=== PATIENT | female | born 1965 | race Caucasian/White ===

== ENCOUNTER → 2017-02-13 21:39 | Outpatient (CLI) | payer MEDICARE ==
[2011-03-10 23:28] VITALS: BMI 27.2
== END | disposition home or self-care (01) ==
LOC: D.MAMMO 14:30
DX: Z12.31 Encounter for screening mammogram for malignant neoplasm of breast (principal)

== ENCOUNTER → 2017-08-10 12:53 | Outpatient (CLI) | payer MEDICARE ==
[2011-03-10 23:28] VITALS: BMI 27.2
== END | disposition home or self-care (01) ==
LOC: D.MRI 12:53
DX: S32.000A Wedge compression fracture of unspecified lumbar vertebra, initial encounter for closed fracture (principal); X58.XXXA Exposure to other specified factors, initial encounter

== ENCOUNTER 2018-11-01 11:28 | Observation (INO) | payer MEDICARE, MEDICAID ==
[2018-11-01] VITALS (7 sets, daily range): BP systolic 110–121; BP diastolic 63–77; BMI 25.6
[~2018-11-01] VITALS: Ht 157.5 cm; Wt 63.5 kg
[2018-11-01] MEDS ORDERED: ZESTRIL10 MG PO (13:45)
[2018-11-01] MEDS ORDERED: TRICOR145 MG PO (13:46)
[2018-11-01] MEDS ORDERED: VESICARE5 MG PO (13:46)
[2018-11-01] MEDS ORDERED: OMEPRAZOLE40 MG PO (13:46)
[2018-11-01] MEDS ORDERED: NEURONTIN 300300 MG PO (13:47)
[2018-11-01] MEDS ORDERED: MULTI-DAY VITAM1 TAB PO (13:48)
[2018-11-01] MEDS ORDERED: NIFEREX-150 CAP1 CA3 PO (13:48)
[2018-11-01] MEDS ORDERED: FIBER-TABS625 MG PO (13:48)
[2018-11-01] MEDS ORDERED: CITRACAL + D E1 EACH PO (13:49)
[2018-11-01] MEDS ORDERED: ASCORBIC ACID500 MG PO (13:50)
[2018-11-01] MEDS ORDERED: VITAMIN B-121000 MCG PO (13:50)
[2018-11-01] MEDS ORDERED: FOLIC ACID0.8 MG PO (13:50)
[2018-11-01] MEDS ORDERED: FLORANEX / LACT1 TAB PO (13:51)
[2018-11-02] VITALS: BP 98/53
[2018-11-02 04:00] VITALS: BP 107/69
[2018-11-02 07:17] VITALS: BP 96/47
--- NOTE | 2018-11-02 07:46 | NUR ---
PT LAYING DOWN. RR EVEN AND UNLABORED. NO DISTRESS NOTED. ASSESSMENT COMPLETE. DRESSING NOTED TO PERINEAL AREA, CDI. BP SLIGHTLY LOW, PT STATES THAT IS NORMAL FOR HER. PT DENIES NEEDS AT THIS TIME. WILL CONTINUE TO MONITOR.
--- NOTE | 2018-11-02 10:57 | MORECARE ---
CASE MANAGEMENT DISCHARGE SUMMARY PATIENT: MYLA CARRERA UNIT: [id number] ADM DATE: 11/01/18 AGE: 53 : 61 SEX: F ROOM/BED: D.1203 AUTHOR: MACHO WATT PHYSICIAN: REFERRING PHYSICIAN: ANDREW WRIGHT MD DATE OF SERVICE: 11/02/18 Discharge Plan Patient Name: MYLA CARRERA Facility: [facility]:[place] : 1965 Planned Disposition: Jail Facility Anticipated Discharge Date: Discharge Date: Expected LOS: Initial Reviewer: [email or web address] Initial Review Date: 11/02/2018 Generated: 11/02/18 11:56 am Patient Name: MYLA CARRERA Page [phone] at 1057 All edits/amendments must be made on the electronic document DICTATION DATE: 11/02/18 1056 SALES SUPPORT COORDINATOR: JUANI 11/02/18 1056 RPT#: [id number] DC DATE: STATUS: ADM IN [facility] [address] [place] [address] END OF REPORT
--- NOTE | 2018-11-02 11:10 | MORECARE ---
CASE MANAGEMENT DISCHARGE SUMMARY PATIENT: MYLA CARRERA UNIT: [id number] ADM DATE: 11/01/18 AGE: 53 : 61 SEX: F ROOM/BED: D.1203 AUTHOR: MACHO WATT PHYSICIAN: REFERRING PHYSICIAN: ANDREW WRIGHT MD DATE OF SERVICE: 11/02/18 Discharge Plan Patient Name: MYLA CARRERA [facility] : 1965 Planned Disposition: Intermediate Facility Anticipated Discharge Date: Discharge Date: Expected LOS: Initial Reviewer: [email or web address] Initial Review Date: 11/02/2018 Generated: 11/02/18 12:10 pm DCPIA - Discharge Planning Initial Assessment Updated by [email or web address]: Bina Avina on 11/02/18 11:07 am * Is the patient Alert and Oriented? Yes * How many steps to enter\exit or inside your home? RAMP * PCP DR ROMERO * Pharmacy [facility] * Preadmission Environment Home with Family * ADLs Partial Dependent * Partial ADLs (Assistance needed) Bathing Transfers * Equipment Cane Walker Wheelchair * Other Equipment ROLLATOR * List name and contact numbers for known caregivers / representatives who currently or will assist patient after discharge: TRUDY CONNOR [facility]- [phone] * Verbal permission to speak to the caregivers and representatives has been obtained from the patient. Yes * Community resources currently utilized None * Please name any agencies selected above. N/A * Additional services required to return to the preadmission environment? Yes * Can the patient safely return to the preadmission environment? Yes * Has this patient been hospitalized within the prior 30 days at any hospital? No Last DP export: 11/02/18 9:57 a Patient Name: MYLA CARRERA Page 68951 at 1110 All edits/amendments must be made on the electronic document DICTATION DATE: 11/02/18 1110 CAPTAIN ASSISTANT: JUANI 11/02/18 1110 RPT#: [id number] DC DATE: STATUS: ADM IN [facility] [address] [id number] END OF REPORT
--- NOTE | 2018-11-02 11:24 | MORECARE ---
CASE MANAGEMENT DISCHARGE SUMMARY PATIENT: MYLA CARRERA UNIT: [id number] ADM DATE: 11/01/18 AGE: 53 : 61 SEX: F ROOM/BED: D.1203 AUTHOR: MACHO WATT PHYSICIAN: REFERRING PHYSICIAN: JM WRIGHT MD DATE OF SERVICE: 11/02/18 Discharge Plan Patient Name: MYLA CARRERA Facility: [facility]:[place] : 1965 Planned Disposition: [facility]fp Facility Anticipated Discharge Date: Discharge Date: Expected LOS: Initial Reviewer: [email or web address] Initial Review Date: 11/02/2018 Generated: 11/02/18 12:23 pm Comments DCP- Discharge Planning Updated by [email or web address]: Bina Avina on 11/02/18 10:[address] Patient Name: MYLA CARRERA Admission Status: Urgent Accout number: [id number] Admission Date: 11-01-2018 : 1965 Admission Diagnosis:ABSCESS OF VULVA Attending: Jm Wright Current LOS: 1 Anticipated DC Date: Planned Disposition: [facility] Facility Primary Insurance: [facility] MEDICARE SOLUTIONS Discharge Planning Comments: LATE ENTRY 0900 CM MET WITH THE PATIENT AND HER SISTER AT THE BEDSIDE. THE PRIMARY NURSE HAD ADVISED THE CM THAT THE SISTER WAS ANXIOUS AND CONCERNED ABOUT DISCHARGE NEEDS. THE SISTER IS WORRIED AND VOICING CONCERNS REGARDING WOUND CARE AND ACKERMAN CARE AT DISCHARGE. THE SISTER WORKS SEISMIC INTERPRETER UNTIL 1600 INTHE EARLY EVENING. HE PATIENT HAS SPINA BIFIDA AND WILL NEED ASISTANCE W/ SITZ BATH, WOUND CARE AND ACKERMAN CARE. THE NURSE CALLED DR TIWARI. ORDER OBTAINED FOR PRIMARY CARE CONSULT. DISCHARGE CANCELLED. PATIENT AND SISTER CONSIDERING SKILLED CARE SHORT STAY. DISCUSS HOME HEALTH AND SKILLED CARE OPTIONS. EXPLAINED THAT THE PATIENT WILL NEED TO CONSIDER MANAGED MEDICARE IN-NETWORK PROVIDERS FOR BETTER INSURANCE COVERAGE. PROVIDED LIST OF SKILLED FACILITIES 1050- DR CABA VISITED FOR CONSULT. Ground Wirer: Bina Avina DCPIA - Discharge Planning Initial Assessment Updated by [email or web address]: Bina Avina on 11/02/18 11:07 am * Is the patient Alert and Oriented? Yes * How many steps to enter\exit or inside your home? RAMP * PCP DR ROMERO * Pharmacy [facility] * Preadmission Environment Home with Family * ADLs Partial Dependent * Partial ADLs (Assistance needed) Bathing Transfers * Equipment Cane Walker Wheelchair * Other Equipment ROLLATOR * List name and contact numbers for known caregivers / representatives who currently or will assist patient after discharge: TRUDY CONNOR - - [phone] * Verbal permission to speak to the caregivers and representatives has been obtained from the patient. Yes * Community resources currently utilized None * Please name any agencies selected above. N/A * Additional services required to return to the preadmission environment? Yes * Can the patient safely return to the preadmission environment? Yes * Has this patient been hospitalized within the prior 30 days at any hospital? No Last DP export: 11/02/18 10:10 a Patient Name: MYLA CARRERA Page [phone] at 1124 All edits/amendments must be made on the electronic document DICTATION DATE: 11/02/18 112 MORTGAGE LOAN OFFICER ORIGINATOR: JUANI 11/02/18 1123 RPT#: [id number] DC DATE: STATUS: ADM IN [facility] [address] [place] [address] END OF REPORT
[2018-11-02 17:23] VITALS: BP 127/50
--- NOTE | 2018-11-02 17:41 | NUR ---
DRESSING REMOVED. NEOSPORIN PLACED ON INCISION SITE AND NON ADHESIVE PAD APPLIED PER DR. WRIGHT REQUEST.
--- NOTE | 2018-11-02 19:25 | NUR ---
PATIENT RESTING IN BED WITH GUEST AT BS AND NO S/S OF DISTRESS. VSS. PATIENT DENIES NEEDS AT THIS TIME. BED IN LOWEST POSITION AND CALL LIGHT WITHIN REACH. ENCOURAGED THE PATIENT TO CALL IF SHE HAS NEEDS. WILL CONTINUE TO MONITOR.
[2018-11-02 19:40] VITALS: BP 121/78
[2018-11-02 20:59] LABS: APPEARANCE CLEAR (CLEAR); BILIRUBIN NEGATIVE (NEGATIVE); COLOR YELLOW (YELLOW); GLUCOSE NEGATIVE (NEGATIVE); KETONE NEGATIVE (NEGATIVE); NITRITE NEGATIVE (NEGATIVE); PROTEIN 3+ mg/dL (NEGATIVE); RED CELLS - URINE 0-5 /hpf (0-5); SPECIFIC GRAVITY 1.025 (1.005-1.020); UROBILINOGEN NORMAL (NORMAL); WHITE CELLS - URINE NSEEN /hpf (0-5)
[2018-11-02 21:00] LABS: EPITHELIAL CELLS 0-5 /hpf (0-5)
[2018-11-03 00:42] VITALS: BP 124/80
[2018-11-03 04:00] VITALS: BP 147/90
[2018-11-03 07:24] VITALS: BP 111/39
--- NOTE | 2018-11-03 07:25 | NUR ---
PT SITTING UP IN BED. RR EVEN AND UNLABORED. VSS. DENIES NEEDS OR PAIN AT THIS TIME. WILL CONTINUE TO MONITOR.
--- NOTE | 2018-11-03 08:21 | CN ---
PATIENT NAME:MYLA CARRERA MEDICAL RECORD: [id number] : 61 [facility] ADMIT DATE: 11/01/18 ACCOUNT: [id number] CONSULTING PHYSICIAN: MALACHI CABA MD REFERRING PHYSICIAN: ANDREW WRIGHT MD DATE OF CONSULTATION: 11/02/2018 MEDICAL CONSULT ADMITTING PHYSICIAN: Andrew Wright MD, BALLET MASTER/MISTRESS REASON FOR CONSULTATION: Medical management postoperative. HISTORY OF PRESENT ILLNESS: The patient is a 53-year-old female with history of spina bifida and surgery for that. As a result, she has had a meningomyelocele and lumbar degenerative disc disease. She is able to walk, but has chronic bladder problems with neurogenic bladder and bladder trabeculation and UTI. She was operated on yesterday by Dr. Wright for a labial mass versus abscess, diagnosis is unknown at this time. She now needs daily wound therapy and that cannot be accomplished at home. She has only one carton and can supply supervisor currently. Case management is attempting to place her in a rehab nursing facility and needed medical evaluation for that. She has felt well otherwise until this point. PAST MEDICAL HISTORY: Spina bifida with secondary fecal and urinary incontinence; lower extremity neuropathy; hypertension; hyperlipidemia; postmenopausal posthysterectomy in 2000; clubbed feet; history of pancolitis with MRSA infection in 2010, treated inpatient at [facility]. PAST SURGICAL HISTORY: Significant for spina bifida at age 1. She has had over 20 shunt placements that were in the mid teenage years, TAHBSO due to fibroid in 2000, recent labial mass removal. ALLERGIES: TYLENOL. FAMILY HISTORY: Father of kidney failure at 72, is diabetic, had hypertension and stroke. Mother from sepsis, respiratory failure, history of congestive heart failure and was diabetic. One brother had coronary artery disease at age 50 with a stent placed, also hypertension. One sister with hyperlipidemia. Another brother with hyperlipidemia. One sister hypothyroid. MEDICATIONS: Fenofibrate 145 mg a day; lisinopril 10 mg daily; omeprazole 20 mg two tablets daily; lactobacillus acidophilus 460 mg p.o. daily; Keflex 500 mg p.o. daily; gabapentin 300 mg b.i.d.; iron 130 mg a day; VESIcare 10 mg in the morning and 5 mg in the evening; multivitamin one daily; calcium carbonate 600 mg daily; vitamin C 500 mg daily; vitamin D2 2000 units daily; B12 1000 mg daily; folic acid 800 mg daily; cranberry pills once a day. REVIEW OF SYSTEMS: CONSTITUTIONAL: No fever, fatigue, or weight change. HEENT: No recent visual change, sinus congestion, or sore throat. RESPIRATORY: No severe cough. CARDIAC: No chest pain or claudication. GASTROINTESTINAL: No nausea, vomiting, change in stools or blood per rectum. GENITOURINARY: Chronic incontinence as mentioned above. CONSULT REPORT [id number] MYLA CARRERA GYNECOLOGICAL: Recent labial irritation and mass formation, moderately painful. ENDOCRINE: Denies polyuria, polydipsia, heat or cold intolerance. NEUROLOGIC: No history of stroke, TIA, or vascular headaches. She says she has neuropathy in her lower extremities. Is able to walk. Has little control of her urine and her rectum. PSYCHIATRIC: Denies depressed mood. PHYSICAL EXAMINATION: GENERAL: Alert 53-year-old female who is postop at this time, expressing no complaints of pain. VITAL SIGNS: Her weight is 149 pounds, height 62 inches and BMI is 27.2, blood pressure 120/80. EYES: Clear. MOUTH: Oropharynx unremarkable. NECK: Supple. CHEST: Clear. HEART: Regular rate without murmur. ABDOMEN: Soft and nontender. GYNECOLOGY: Deferred. She has surgical packing noted with Dugan catheter in place. EXTREMITIES: Muscle atrophy in lower extremities. Lower extremities with club feet. She does have some motor function of her lower extremities and sensation. LABORATORY DATA: Sodium 135, potassium 3.6, BUN is 19, creatinine 0.8. CBC is normal. ASSESSMENT: 1. Postoperative day 1 from the labial mass removal, excision. 2. Spina bifida with myelomeningocele. 3. Neurogenic bladder. 4. History of methicillin-resistant Staphylococcus aureus pancolitis. 5. Hypertension. 6. Hyperlipidemia. PLAN: We will follow medically. At this time, we will obtain consult case management for rehab placement for wound care. TRANSINT:[id number] Voice Confirmation ID: [id number] DOCUMENT ID: [id number] MALACHI CABA MD at 0821 CC: [id number] DICTATION DATE: 11/02/18 0088 FILM SPOOLER: 11/02/[address] [facility] [address] [place] [address]
--- NOTE | 2018-11-03 10:13 | OP ---
PATIENT NAME: MYLA CARRERA MEDICAL RECORD: [id number] :61 LOCATION:D.M3 D.1203 ADMISSION DATE:11/01/18 SURGEON: JM WRIGHT MD DATE OF OPERATION: 11/01/2018 PREOPERATIVE DIAGNOSIS: Vulvar mass. POSTOPERATIVE DIAGNOSIS: Vulvar mass. PROCEDURE: Excision of vulvar mass. SURGEON: Jm Wright MD IGNITION SPECIALIST: Bart Roa. ANESTHESIOLOGIST: Deejay English MD ANESTHESIA: General. FINDINGS: A fluctuant cystic mass contained within the right vulva/inferior mons pubis. The mass is fluid-filled with bloody fluid measuring 5 x 3-1/2 cm. Otherwise, vulvar anatomy is unremarkable. SPECIMENS REMOVED: Vulvar mass. SPECIMEN DISPOSITION: Pathology. ESTIMATED BLOOD LOSS: Less than or equal to 75 mL. FLUIDS: 1 liter of lactated Ringer's. URINE OUTPUT: 100 cc of clear urine. COMPLICATIONS: None. DRAINS: Dugan to gravity. INDICATIONS: The patient is a 53-year-old female who was seen in the Emergency Department and primary care physician with a vulvar erythema and pain. The patient was diagnosed with abscess and started on clindamycin. The patient presents to IMMIGRATION SPECIALIST clinic this morning with a large fluctuant mass on the vulva without localization and exquisite tenderness. The patient was consented for removal of vulvar mass versus drainage of deep abscess. DESCRIPTION OF PROCEDURE: After informed consent was assured, the patient was taken to the operating room where anesthetic was obtained. The patient was placed in Yellofin stirrups and prepped and draped. Dugan catheter was started. The mass was identified in its margins marked. A linear incision was now made along the lines of Langerhans, right lateral to the vagina along the surface. The skin edges are elevated with Allis clamps and using tenotomy scissors and blunt dissection, the cyst was freed from the deeper tissues. After expulsion of the cyst, it was removed from the field. The deep tissues were closed with a 2-[address]-2. The skin was reapproximated with 3-0 Vicryl on a cutting needle. Sterile dressing was applied. Ice packs applied in the PACU. Sponge, lap, needle counts were correct times 2. OPERATIVE REPORT [id number] MYLA CARRERA TRANSINT:[id number] Voice Confirmation ID: [id number] DOCUMENT ID: [id number] JM WRIGHT MD at 1013 CC: [id number] DICTATION DATE: 11/01/181735 NETWORK TECHNICIAN: 11/01/18 2300 ADM IN [facility] [address] [place] [address]
--- NOTE | 2018-11-03 14:42 | NUR ---
I have reviewed this patient and I concur with the Shift Assessment completed by the Licensed Practical Nurse today this shift.
--- NOTE | 2018-11-03 14:50 | NUR ---
BED BATH GIVEN. LINENS CHANGED. PT REFUSED TO WASH HAIR. ORAL CARE COMPLETE.
[2018-11-03 18:08] VITALS: BP 146/67
--- NOTE | 2018-11-03 18:43 | NUR ---
PT ASSISTED TO THE BATHROOM X1 ASSIST. GAIT SLIGHTLY UNSTEADY.
--- NOTE | 2018-11-03 19:29 | NUR ---
PATIENT RESTING IN BED AND DENIES NEEDS AT THIS TIME. VSS. BED IN LOWEST POSITION AND CALL LIGHT WITHIN REACH. ENCOURAGED THE PATIENT TO CALL IF SHE HAS NEEDS. WILL CONTINUE TO MONITOR.
[2018-11-03 19:56] VITALS: BP 168/66
--- NOTE | 2018-11-03 19:58 | NUR ---
PATIENT REQUESTED DR BE CALLED FOR SOMETHING TO HELP HER SLEEP
--- NOTE | 2018-11-03 20:00 | NUR ---
SPOKE WITH DR. WRIGHT IN REGARDS TO PATIENT'S REQUEST. DR. WRIGHT ORDERED 10 MG AMBIEN A ONE TIME ORDER
[2018-11-04] VITALS: BP 100/54
[2018-11-04 04:00] VITALS: BP 106/44
--- NOTE | 2018-11-04 07:25 | NUR ---
AM ROUNDS- PT IN BED EATING BREAKFAST, A/O X4, RESP EVEN AND NONLABORED ON RA. LT WRIST IV SL. ACKERMAN DRAINING YELLOW URINE TO GRAVITY. INFORMED PT THAT SHE IS BEING DISCHARGED TODAY. PT DENIES ANY NEEDS AT THIS TIME. CALL LIGHT IN REACH, NAD NOTED, WILL CONTINUE PLAN OF CARE.
--- NOTE | 2018-11-04 08:26 | NUR ---
AM MEDS GIVEN AT THIS TIME. PT IN BED, DENIES ANY NEEDS AT THIS TIME. CALL LIGHT IN REACH, NAD NOTED, WILL CONTINUE TO MONITOR.
[2018-11-04 09:33] VITALS: BP 118/71
--- NOTE | 2018-11-04 11:03 | MORECARE ---
CASE MANAGEMENT DISCHARGE SUMMARY PATIENT: MYLA CARRERA UNIT: [id number] ADM DATE: 11/01/18 AGE: 53 : 61 SEX: F ROOM/BED: D.1203 AUTHOR: MACHO WATT PHYSICIAN: REFERRING PHYSICIAN: JM WRIGHT MD DATE OF SERVICE: 11/04/18 Discharge Plan Patient Name: MYLA CARRERA Facility: [facility]:[place] : 1965 Planned Disposition: Prison Facility Anticipated Discharge Date: Discharge Date: Expected LOS: Initial Reviewer: [email or web address] Initial Review Date: 11/02/2018 Generated: 11/04/18 12:03 pm DCP- Discharge Planning Updated by [email or web address]: Bina Avina on 11/02/18 10:[address] Patient Name: MYLA CARRERA Admission Status: Urgent Accout number: [id number] Admission Date: 11-01-2018 : 1965 Admission Diagnosis:ABSCESS OF VULVA Attending: Jm Wright Current LOS: 1 Anticipated DC Date: Planned Disposition: Prison Facility Primary Insurance: [facility] MEDICARE SOLUTIONS Discharge Planning Comments: LATE ENTRY 0900 CM MET WITH THE PATIENT AND HER SISTER AT THE BEDSIDE. THE PRIMARY NURSE HAD ADVISED THE CM THAT THE SISTER WAS ANXIOUS AND CONCERNED ABOUT DISCHARGE NEEDS. THE SISTER IS WORRIED AND VOICING CONCERNS REGARDING WOUND CARE AND ACKERMAN CARE AT DISCHARGE. THE SISTER WORKS CLAIMS MANAGER UNTIL 1600 INTHE EARLY EVENING. HE PATIENT HAS SPINA BIFIDA AND WILL NEED ASISTANCE W/ SITZ BATH, WOUND CARE AND ACKERMAN CARE. THE NURSE CALLED DR TIWARI. ORDER OBTAINED FOR PRIMARY CARE CONSULT. DISCHARGE CANCELLED. PATIENT AND SISTER CONSIDERING SKILLED CARE SHORT STAY. DISCUSS HOME HEALTH AND SKILLED CARE OPTIONS. EXPLAINED THAT THE PATIENT WILL NEED TO CONSIDER MANAGED MEDICARE IN-NETWORK PROVIDERS FOR BETTER INSURANCE COVERAGE. PROVIDED LIST OF SKILLED FACILITIES 1050- DR CABA VISITED FOR CONSULT. Child Development Consultant: Bina Avina DCPIA - Discharge Planning Initial Assessment Updated by [email or web address]: Bina Avina on 11/02/18 11:07 am * Is the patient Alert and Oriented? Yes * How many steps to enter\exit or inside your home? RAMP * PCP DR ROMERO * Pharmacy [facility] * Preadmission Environment Home with Family * ADLs Partial Dependent * Partial ADLs (Assistance needed) Bathing Transfers * Equipment Cane Walker Wheelchair * Other Equipment ROLLATOR * List name and contact numbers for known caregivers / representatives who currently or will assist patient after discharge: TRUDY CONNOR - - [phone] * Verbal permission to speak to the caregivers and representatives has been obtained from the patient. Yes * Community resources currently utilized None * Please name any agencies selected above. N/A * Additional services required to return to the preadmission environment? Yes * Can the patient safely return to the preadmission environment? Yes * Has this patient been hospitalized within the prior 30 days at any hospital? No External Providers External Provider: [facility] Next Contact Date: Service Request Date: Service Type: Resolution: Reviewer: Comments: Last DP export: 11/02/18 10:23 a Patient Name: MYLA CARRERA Page [phone] at 1103 All edits/amendments must be made on the electronic document DICTATION DATE: 11/04/18 110 NECK BAND MAKER: JUANI 11/04/18 1103 RPT#: [id number] DC DATE: STATUS: ADM IN [facility] [address] [place] [address] END OF REPORT
--- NOTE | 2018-11-04 11:31 | MORECARE ---
CASE MANAGEMENT DISCHARGE SUMMARY PATIENT: MYLA CARRERA UNIT: [id number] ADM DATE: 11/01/18 AGE: 53 : 61 SEX: F ROOM/BED: D.1203 AUTHOR: [email or web address] PHYSICIAN: REFERRING PHYSICIAN: JM WRIGHT MD DATE OF SERVICE: 11/04/18 Discharge Plan Patient Name: MYLA CARRERA Facility: [facility]:[place] : 1965 Planned Disposition: Group Home Facility Anticipated Discharge Date: Discharge Date: Expected LOS: Initial Reviewer: [email or web address] Initial Review Date: 11/02/2018 Generated: 11/04/18 12:31 pm Comments DCP- Discharge Planning Updated by [email or web address]: Rachael Gonzalez on 11/04/18 10:[address] CM met with patient and sister requesting SNF at [facility]. CM contacted [facility] and faxed over records. CM also placed order for OT eval since patient is managed medicare. CM awaiting response from [facility]. CM will continue to follow and assist as needed with discharge planning / needs. DCP- Discharge Planning Updated by [email or web address]: Bina Avina on 11/02/18 10:[address] Patient Name: MYLA CARRERA Admission Status: Urgent Accout number: [id number] Admission Date: 11-01-2018 : 1965 Admission Diagnosis:ABSCESS OF VULVA Attending: Jm Wright Current LOS: 1 Anticipated DC Date: Planned Disposition: Group Home Facility Primary Insurance: [facility] MEDICARE SOLUTIONS Discharge Planning Comments: LATE ENTRY 0900 CM MET WITH THE PATIENT AND HER SISTER AT THE BEDSIDE. THE PRIMARY NURSE HAD ADVISED THE CM THAT THE SISTER WAS ANXIOUS AND CONCERNED ABOUT DISCHARGE NEEDS. THE SISTER IS WORRIED AND VOICING CONCERNS REGARDING WOUND CARE AND ACKERMAN CARE AT DISCHARGE. THE SISTER WORKS BUILDING CERTIFIER UNTIL 1600 INTHE EARLY EVENING. HE PATIENT HAS SPINA BIFIDA AND WILL NEED ASISTANCE W/ SITZ BATH, WOUND CARE AND ACKERMAN CARE. THE NURSE CALLED DR TIWARI. ORDER OBTAINED FOR PRIMARY CARE CONSULT. DISCHARGE CANCELLED. PATIENT AND SISTER CONSIDERING SKILLED CARE SHORT STAY. DISCUSS HOME HEALTH AND SKILLED CARE OPTIONS. EXPLAINED THAT THE PATIENT WILL NEED TO CONSIDER MANAGED MEDICARE IN-NETWORK PROVIDERS FOR BETTER INSURANCE COVERAGE. PROVIDED LIST OF SKILLED FACILITIES 1050- DR CABA VISITED FOR CONSULT. Fire Official: Bina Avina DCPIA - Discharge Planning Initial Assessment Updated by [email or web address]: Bina Avina on 11/02/18 11:07 am * Is the patient Alert and Oriented? Yes * How many steps to enter\exit or inside your home? RAMP * PCP DR ROMERO * Pharmacy [facility] * Preadmission Environment Home with Family * ADLs Partial Dependent * Partial ADLs (Assistance needed) Bathing Transfers * Equipment Cane Walker Wheelchair * Other Equipment ROLLATOR * List name and contact numbers for known caregivers / representatives who currently or will assist patient after discharge: TRUDY CONNOR - [facility]- [phone] * Verbal permission to speak to the caregivers and representatives has been obtained from the patient. Yes * Community resources currently utilized None * Please name any agencies selected above. N/A * Additional services required to return to the preadmission environment? Yes * Can the patient safely return to the preadmission environment? Yes * Has this patient been hospitalized within the prior 30 days at any hospital? No Last DP export: 11/04/18 10:03 a Patient Name: MYLA CARRERA Page [phone] at 1131 All edits/amendments must be made on the electronic document DICTATION DATE: 11/04/18 113 MOVER: JUANI 11/04/18 1130 RPT#: [id number] PA DATE: STATUS: ADM IN [facility] [address] [place] [address] END OF REPORT
[2018-11-04 12:16] VITALS: BP 108/64
[2018-11-04 16:20] VITALS: BP 114/68
--- NOTE | 2018-11-04 17:13 | MORECARE ---
CASE MANAGEMENT DISCHARGE SUMMARY PATIENT: MYLA CARRERA UNIT: [id number] ADM DATE: 11/01/18 AGE: 53 : 61 SEX: F ROOM/BED: D.1203 AUTHOR: SHUKRI,DOC PHYSICIAN: REFERRING PHYSICIAN: JM WRIGHT MD DATE OF SERVICE: 11/04/18 Discharge Plan Patient Name: MYLA CARRERA Facility: [facility]:[place] : 1965 Planned Disposition: Usp Facility Anticipated Discharge Date: Discharge Date: Expected LOS: Initial Reviewer: [email or web address] Initial Review Date: 11/02/2018 Generated: 11/04/18 6:12 pm Comments DCP- Discharge Planning Updated by [id number]: Rachael Gonzalez on 11/04/18 10:[address] CM met with patient and sister requesting SNF at [facility]. CM contacted [facility] and faxed over records. CM also placed order for OT eval since patient is managed medicare. CM awaiting response from [facility]. CM will continue to follow and assist as needed with discharge planning / needs. DCP- Discharge Planning Updated by [email or web address]: Bina Avina on 11/02/18 10:[address] Patient Name: MYLA CARRERA Admission Status: Urgent Accout number: [id number] Admission Date: 11-01-2018 : 1965 Admission Diagnosis:ABSCESS OF VULVA Attending: Jm Wright Current LOS: 1 Anticipated DC Date: Planned Disposition: Usp Facility Primary Insurance: [facility] MEDICARE SOLUTIONS Discharge Planning Comments: LATE ENTRY 0900 CM MET WITH THE PATIENT AND HER SISTER AT THE BEDSIDE. THE PRIMARY NURSE HAD ADVISED THE CM THAT THE SISTER WAS ANXIOUS AND CONCERNED ABOUT DISCHARGE NEEDS. THE SISTER IS WORRIED AND VOICING CONCERNS REGARDING WOUND CARE AND ACKERMAN CARE AT DISCHARGE. THE SISTER WORKS [employer] PRODUCT CONSULTANT UNTIL 1600 INTHE EARLY EVENING. HE PATIENT HAS SPINA BIFIDA AND WILL NEED ASISTANCE W/ SITZ BATH, WOUND CARE AND ACKERMAN CARE. THE NURSE CALLED DR TIWARI. ORDER OBTAINED FOR PRIMARY CARE CONSULT. DISCHARGE CANCELLED. PATIENT AND SISTER CONSIDERING SKILLED CARE SHORT STAY. DISCUSS HOME HEALTH AND SKILLED CARE OPTIONS. EXPLAINED THAT THE PATIENT WILL NEED TO CONSIDER MANAGED MEDICARE IN-NETWORK PROVIDERS FOR BETTER INSURANCE COVERAGE. PROVIDED LIST OF SKILLED FACILITIES 1050- DR CABA VISITED FOR CONSULT. Tempering Kiln Tender: Bina Avina DCPIA - Discharge Planning Initial Assessment Updated by [id number]: Bina Avina on 11/02/18 11:07 am * Is the patient Alert and Oriented? Yes * How many steps to enter\exit or inside your home? RAMP * PCP DR ROMERO * Pharmacy [facility] * Preadmission Environment Home with Family * ADLs Partial Dependent * Partial ADLs (Assistance needed) Bathing Transfers * Equipment Cane Walker Wheelchair * Other Equipment ROLLATOR * List name and contact numbers for known caregivers / representatives who currently or will assist patient after discharge: TRUDY CONNOR - [facility]- [phone] * Verbal permission to speak to the caregivers and representatives has been obtained from the patient. Yes * Community resources currently utilized None * Please name any agencies selected above. N/A * Additional services required to return to the preadmission environment? Yes * Can the patient safely return to the preadmission environment? Yes * Has this patient been hospitalized within the prior 30 days at any hospital? No External Providers External Provider: -[facility] Next Contact Date: Service Request Date: Service Type: Resolution: Reviewer: Comments: Last DP export: 11/04/18 10:31 a Patient Name: MYLA CARRERA Page 08519 at 1713 All edits/amendments must be made on the electronic document DICTATION DATE: 11/04/181711 CUSHION SPRING ASSEMBLER: JUANI 11/04/181711 RPT#: [id number] DC DATE: STATUS: ADM IN [facility] [address] [place] [address] END OF REPORT
--- NOTE | 2018-11-04 17:22 | MORECARE ---
CASE MANAGEMENT DISCHARGE SUMMARY PATIENT: MYLA CARRERA UNIT: [id number] ADM DATE: 11/01/18 AGE: 53 : 61 SEX: F ROOM/BED: D.1203 AUTHOR: MACHO WATT PHYSICIAN: REFERRING PHYSICIAN: JM WRIGHT MD DATE OF SERVICE: 11/04/18 Discharge Plan Patient Name: MYLA CARRERA Facility: [facility]:[place] : 1965 Planned Disposition: Long Term Facility Anticipated Discharge Date: Discharge Date: Expected LOS: Initial Reviewer: [email or web address] Initial Review Date: 11/02/2018 Generated: 11/04/18 6:21 pm Comments DCP- Discharge Planning Updated by [id number]: Rachael Gonzalez on 11/04/18 4:[address] CM received notice @ 8295 that patient isn't in network at [facility]. CM notified patient and sister Suzie about this. Suzie requested that CM call to find out which facilities are within network. CM called [facility] and was on phone for over 30mins and was given [facility] and [facility]. CM called Suzie back and informed her of this. Suzie gave verbal consent for [facility]. CM faxed records to [facility] awaiting acceptance. CM will continue to follow and assist as needed with discharge planning / needs. DCP- Discharge Planning Updated by [email or web address]: Rachael Gonzalez on 11/04/18 10:[address] CM met with patient and sister requesting SNF at [facility]. CM contacted [facility] and faxed over records. CM also placed order for OT eval since patient is managed medicare. CM awaiting response from [facility]. CM will continue to follow and assist as needed with discharge planning / needs. DCP- Discharge Planning Updated by [email or web address]: Bina Avina on 11/02/18 10:[address] Patient Name: MYLA CARRERA Admission Status: Urgent Accout number: [id number] Admission Date: 11-01-2018 : 1965 Admission Diagnosis:ABSCESS OF VULVA Attending: Jm Wright Current LOS: 1 Anticipated DC Date: Planned Disposition: Long Term Facility Primary Insurance: [facility] MEDICARE SOLUTIONS Discharge Planning Comments: LATE ENTRY 0900 CM MET WITH THE PATIENT AND HER SISTER AT THE BEDSIDE. THE PRIMARY NURSE HAD ADVISED THE CM THAT THE SISTER WAS ANXIOUS AND CONCERNED ABOUT DISCHARGE NEEDS. THE SISTER IS WORRIED AND VOICING CONCERNS REGARDING WOUND CARE AND ACKERMAN CARE AT DISCHARGE. THE SISTER WORKS VENETIAN BLIND WORKER UNTIL 1600 INTHE EARLY EVENING. HE PATIENT HAS SPINA BIFIDA AND WILL NEED ASISTANCE W/ SITZ BATH, WOUND CARE AND ACKERMAN CARE. THE NURSE CALLED DR TIWARI. ORDER OBTAINED FOR PRIMARY CARE CONSULT. DISCHARGE CANCELLED. PATIENT AND SISTER CONSIDERING SKILLED CARE SHORT STAY. DISCUSS HOME HEALTH AND SKILLED CARE OPTIONS. EXPLAINED THAT THE PATIENT WILL NEED TO CONSIDER MANAGED MEDICARE IN-NETWORK PROVIDERS FOR BETTER INSURANCE COVERAGE. PROVIDED LIST OF SKILLED FACILITIES 1050- DR CABA VISITED FOR CONSULT. Vegetable Farmworker: Bina Avina DCA - Discharge Planning Initial Assessment Updated by [id number]: Bina Avina on 11/02/18 11:07 am * Is the patient Alert and Oriented? Yes * How many steps to enter\exit or inside your home? RAMP * PCP DR ROMERO * Pharmacy [facility] * Preadmission Environment Home with Family * ADLs Partial Dependent * Partial ADLs (Assistance needed) Bathing Transfers * Equipment Cane Walker Wheelchair * Other Equipment ROLLATOR * List name and contact numbers for known caregivers / representatives who currently or will assist patient after discharge: TRUDY RODAS- [phone] * Verbal permission to speak to the caregivers and representatives has been obtained from the patient. Yes * Community resources currently utilized None * Please name any agencies selected above. N/A * Additional services required to return to the preadmission environment? Yes * Can the patient safely return to the preadmission environment? Yes * Has this patient been hospitalized within the prior 30 days at any hospital? No Last DP export: 11/04/18 4:13 p Patient Name: MYLA CARRERA Page 09089 at 1722 All edits/amendments must be made on the electronic document DICTATION DATE: 11/04/181720 HPLC CHEMIST: JUANI 11/04/181720 RPT#: [id number] DC DATE: STATUS: ADM IN [facility] [address] [place] [address] END OF REPORT
[2018-11-04 20:00] VITALS: BP 144/91
--- NOTE | 2018-11-04 22:23 | NUR ---
PATIENT RESTING IN BED AND DENIES NEEDS AT THIS TIME. BED IN LOWEST POSITION AND CALL LIGHT WITHIN REACH. ENCOURAGED THE PATIENT TO CALL IF SHE HAS NEEDS. WILL CONTINUE TO MONITOR.
[2018-11-05 06:58] VITALS: BP 114/70
[2018-11-05 08:00] VITALS: BP 111/72
--- NOTE | 2018-11-05 09:00 | MORECARE ---
CASE MANAGEMENT DISCHARGE SUMMARY PATIENT: MYLA CARRERA UNIT: [id number] ADM DATE: 11/01/18 AGE: 53 : 61 SEX: F ROOM/BED: D.1203 AUTHOR: SHUKRI,DOC PHYSICIAN: REFERRING PHYSICIAN: JM WRIGHT MD DATE OF SERVICE: 11/05/18 Discharge Plan Patient Name: MYLA CARRERA Facility: [facility]:[place] : 1965 Planned Disposition: Mcfp Facility Anticipated Discharge Date: Discharge Date: Expected LOS: Initial Reviewer: [email or web address] Initial Review Date: 11/02/2018 Generated: 11/05/18 9:59 am Comments DCP- Discharge Planning Updated by [email or web address]: Sherly Bedolla on 11/05/18 7:[address] Referral pending @ [facility] - CM called to follow up on this referral @ 0866, spoke to Radha Shuttle Final Inspector who reported patient has been accepted by them but PA is pending insurance authorization. She stated they faxed for the PA this morning. DCP- Discharge Planning Updated by [email or web address]: Rachael Gonzalez on 11/04/18 4:[address] CM received notice @ 6203 that patient isn't in network at [facility]. CM notified patient and sister Suzie about this. Suzie requested that CM call to find out which facilities are within network. CM called [facility] and was on phone for over 30mins and was given [facility] and [facility]. CM called Suzie back and informed her of this. Suzie gave verbal consent for [facility]. CM faxed records to [facility] awaiting acceptance. CM will continue to follow and assist as needed with discharge planning / needs. DCP- Discharge Planning Updated by [email or web address]: Rachael Gonzalez on 11/04/18 10:[address] CM met with patient and sister requesting SNF at [facility]. CM contacted [facility] and faxed over records. CM also placed order for OT eval since patient is managed medicare. CM awaiting response from [facility]. CM will continue to follow and assist as needed with discharge planning / needs. DCP- Discharge Planning Updated by [email or web address]: Bina Avina on 11/02/18 10:[address] Patient Name: MYLA CARRERA Admission Status: Urgent Accout number: [id number] Admission Date: 11-01-2018 : 1965 Admission Diagnosis:ABSCESS OF VULVA Attending: Jm Wright Current LOS: 1 Anticipated DC Date: Planned Disposition: Mcfp Facility Primary Insurance: [facility] MEDICARE SOLUTIONS Discharge Planning Comments: LATE ENTRY 0900 CM MET WITH THE PATIENT AND HER SISTER AT THE BEDSIDE. THE PRIMARY NURSE HAD ADVISED THE CM THAT THE SISTER WAS ANXIOUS AND CONCERNED ABOUT DISCHARGE NEEDS. THE SISTER IS WORRIED AND VOICING CONCERNS REGARDING WOUND CARE AND ACKERMAN CARE AT DISCHARGE. THE SISTER WORKS SWIFT TENDER UNTIL 1600 INTHE EARLY EVENING. HE PATIENT HAS SPINA BIFIDA AND WILL NEED ASISTANCE W/ SITZ BATH, WOUND CARE AND ACKERMAN CARE. THE NURSE CALLED DR TIWARI. ORDER OBTAINED FOR PRIMARY CARE CONSULT. DISCHARGE CANCELLED. PATIENT AND SISTER CONSIDERING SKILLED CARE SHORT STAY. DISCUSS HOME HEALTH AND SKILLED CARE OPTIONS. EXPLAINED THAT THE PATIENT WILL NEED TO CONSIDER MANAGED MEDICARE IN-NETWORK PROVIDERS FOR BETTER INSURANCE COVERAGE. PROVIDED LIST OF SKILLED FACILITIES 1050- DR CABA VISITED FOR CONSULT. Carrot Harvester: Bina Avina DCPIA - Discharge Planning Initial Assessment Updated by [email or web address]: Bina Avina on 11/02/18 11:07 am * Is the patient Alert and Oriented? Yes * How many steps to enter\exit or inside your home? RAMP * PCP DR ROMERO * Pharmacy [facility] * Preadmission Environment Home with Family * ADLs Partial Dependent * Partial ADLs (Assistance needed) Bathing Transfers * Equipment Cane Walker Wheelchair * Other Equipment ROLLATOR * List name and contact numbers for known caregivers / representatives who currently or will assist patient after discharge: TRUDY CONNOR - SISTER- [phone] * Verbal permission to speak to the caregivers and representatives has been obtained from the patient. Yes * Community resources currently utilized None * Please name any agencies selected above. N/A * Additional services required to return to the preadmission environment? Yes * Can the patient safely return to the preadmission environment? Yes * Has this patient been hospitalized within the prior 30 days at any hospital? No Last DP export: 11/04/18 4:22 p Patient Name: MYLA CARRERA Page 18034 at 0900 All edits/amendments must be made on the electronic document DICTATION DATE: 11/05/18858 OPERATIONS RESEARCH ANALYST: JUANI 11/05/18858 RPT#: [id number] DC DATE: STATUS: ADM IN [facility] [address] [place] [address] END OF REPORT
--- NOTE | 2018-11-05 10:25 | NUR ---
CALLED PHARMACY AND SPOKE WITH ELIOT AND INFORMED HIM THAT I NEED MEDICATIONS.
--- NOTE | 2018-11-05 11:49 | NUR ---
OT NOTE: PT PERFORMED WELL TODAY WITH MOBILITY AND ADLS, HOWEVER, SHE FATIGUES QUICKLY. SBA WITH BED MOB , SIT TO STAND WITH MIN ASSIST. PT AMB IN ROOM WITH WALKER AND CGA, BUT REQUIRED 1 REST BREAK AFTER 15 STEPS. ABLE TO ARNALDO GOWN WITH MIN ASSIST; AMB TO BATHROOM WITH CGA; TOILET HYGIENE WITH SET UP. ABLE TO WASH HANDS AND FACE WITH CLOTH WITH SET UP. MOD ASSIST WITH SCOOTING UP IN BED DUE TO FATIGUE. NIKKI GRIMES, OTR/L
[2018-11-05 12:17] VITALS: BP 124/75
[2018-11-05 12:25] VITALS: Ht 157.5 cm; Wt 63.5 kg
--- NOTE | 2018-11-05 12:49 | NUR ---
REPORT RECIEVED. POC RESUMED. PT DENIES NEEDS AT THIS TIME. WILL CHANGE DRESSING. RR EVEN AND UNLABORED. WILL CONTINUE TO MONITOR.
--- NOTE | 2018-11-05 13:42 | MORECARE ---
CASE MANAGEMENT DISCHARGE SUMMARY PATIENT: MYLA CARRERA UNIT: [id number] ADM DATE: 11/01/18 AGE: 53 : 61 SEX: F ROOM/BED: D.1203 AUTHOR: SHUKRI,DOC PHYSICIAN: REFERRING PHYSICIAN: JM WRIGHT MD DATE OF SERVICE: 11/05/18 Discharge Plan Patient Name: MYLA CARRERA Facility: [facility]:[place] : 1965 Planned Disposition: Fpc Facility Anticipated Discharge Date: Discharge Date: Expected LOS: Initial Reviewer: [email or web address] Initial Review Date: 11/02/2018 Generated: 11/05/18 2:42 pm Comments DCP- Discharge Planning Updated by [email or web address]: Sherly Bedolla on 11/05/18 7:[address] Referral pending @ [facility] - CM called to follow up on this referral @ 0843, spoke to Radha Sixth Grade Teacher who reported patient has been accepted by them but PA is pending insurance authorization. She stated they faxed for the PA this morning. DCP- Discharge Planning Updated by [id number]: Rachael Gonzalez on 11/04/18 4:[address] CM received notice @ 2976 that patient isn't in network at [facility]. CM notified patient and sister Suzie about this. Suzie requested that CM call to find out which facilities are within network. CM called [facility] and was on phone for over 30mins and was given [facility] and [facility]. CM called Suzie back and informed her of this. Suzie gave verbal consent for [facility]. CM faxed records to [facility] awaiting acceptance. CM will continue to follow and assist as needed with discharge planning / needs. DCP- Discharge Planning Updated by [email or web address]: Rachael Gonzalez on 11/04/18 10:[address] CM met with patient and sister requesting SNF at [facility]. CM contacted [facility] and faxed over records. CM also placed order for OT eval since patient is managed medicare. CM awaiting response from [facility]. CM will continue to follow and assist as needed with discharge planning / needs. DCP- Discharge Planning Updated by [id number]: Bina Avina on 11/02/18 10:[address] Patient Name: MYLA CARRERA Admission Status: Urgent Accout number: [id number] Admission Date: 11-01-2018 : 1965 Admission Diagnosis:ABSCESS OF VULVA Attending: Jm Wright Current LOS: 1 Anticipated DC Date: Planned Disposition: Fpc Facility Primary Insurance: [facility] MEDICARE SOLUTIONS Discharge Planning Comments: LATE ENTRY 0900 CM MET WITH THE PATIENT AND HER SISTER AT THE BEDSIDE. THE PRIMARY NURSE HAD ADVISED THE CM THAT THE SISTER WAS ANXIOUS AND CONCERNED ABOUT DISCHARGE NEEDS. THE SISTER IS WORRIED AND VOICING CONCERNS REGARDING WOUND CARE AND ACKERMAN CARE AT DISCHARGE. THE SISTER WORKS RABBIT BREEDER UNTIL 1600 INTHE EARLY EVENING. HE PATIENT HAS SPINA BIFIDA AND WILL NEED ASISTANCE W/ SITZ BATH, WOUND CARE AND ACKERMAN CARE. THE NURSE CALLED DR TIWARI. ORDER OBTAINED FOR PRIMARY CARE CONSULT. DISCHARGE CANCELLED. PATIENT AND SISTER CONSIDERING SKILLED CARE SHORT STAY. DISCUSS HOME HEALTH AND SKILLED CARE OPTIONS. EXPLAINED THAT THE PATIENT WILL NEED TO CONSIDER MANAGED MEDICARE IN-NETWORK PROVIDERS FOR BETTER INSURANCE COVERAGE. PROVIDED LIST OF SKILLED FACILITIES 1050- DR CABA VISITED FOR CONSULT. Melt House Drag Operator: Bina Avina DCPIA - Discharge Planning Initial Assessment Updated by [email or web address]: Bina Avina on 11/02/18 11:07 am * Is the patient Alert and Oriented? Yes * How many steps to enter\exit or inside your home? RAMP * PCP DR ROMERO * Pharmacy [facility] * Preadmission Environment Home with Family * ADLs Partial Dependent * Partial ADLs (Assistance needed) Bathing Transfers * Equipment Cane Walker Wheelchair * Other Equipment ROLLATOR * List name and contact numbers for known caregivers / representatives who currently or will assist patient after discharge: TRUDY CONNOR - - [phone] * Verbal permission to speak to the caregivers and representatives has been obtained from the patient. Yes * Community resources currently utilized None * Please name any agencies selected above. N/A * Additional services required to return to the preadmission environment? Yes * Can the patient safely return to the preadmission environment? Yes * Has this patient been hospitalized within the prior 30 days at any hospital? No External Providers External Provider: [facility] Next Contact Date: Service Request Date: Service Type: Resolution: Reviewer: Comments: External Provider: [facility] Next Contact Date: Service Request Date: Service Type: Resolution: Reviewer: Comments: Last DP export: 11/05/18 8:00 a Patient Name: MYLA CARRERA Page 82565 at 1342 All edits/amendments must be made on the electronic document DICTATION DATE: 11/05/18 134 ELEVATOR WORKER: JUANI 11/05/18 1342 RPT#: [id number] DC DATE: STATUS: ADM IN [address] [place] [address] END OF REPORT
--- NOTE | 2018-11-05 14:07 | MORECARE ---
CASE MANAGEMENT DISCHARGE SUMMARY PATIENT: MYLA CARRERA UNIT: [id number] ADM DATE: 11/01/18 AGE: 53 : 61 SEX: F ROOM/BED: D.1203 AUTHOR: SHUKRI,DOC PHYSICIAN: REFERRING PHYSICIAN: JM WRIGHT MD DATE OF SERVICE: 11/05/18 Discharge Plan Patient Name: MYLA CARRERA Facility: [facility]:[place] : 1965 Planned Disposition: Penitentiary Facility Anticipated Discharge Date: Discharge Date: Expected LOS: Initial Reviewer: [email or web address] Initial Review Date: 11/02/2018 Generated: 11/05/18 3:07 pm Comments DCP- Discharge Planning Updated by [id number]: Rachael Gonzalez on 11/05/18 12:[address] LATE ENTRY - 11/05/18 @ 0900 CM received call from Olga Ambrose liaison for [facility] ([facility]) that they could not accept patient due the insurance policy that she has. CM will continue to follow and assist as needed with discharge planning / needs. DCP- Discharge Planning Updated by [id number]: Sherly Bedolla on 11/05/18 7:[address] Referral pending @ [facility] - CM called to follow up on this referral @ 0895, spoke to Radha Patient Svcs Mgr who reported patient has been accepted by them but PA is pending insurance authorization. She stated they faxed for the PA this morning. DCP- Discharge Planning Updated by [id number]: Rachael Gonzlaez on 11/04/18 4:[address] CM received notice @ 9055 that patient isn't in network at [facility]. CM notified patient and sister Suzie about this. Suzie requested that CM call to find out which facilities are within network. CM called [facility] and was on phone for over 30mins and was given [facility] and [email or web address]. CM called Suzie back and informed her of this. [facility] gave [facility] CM faxed records to [facility] awaiting acceptance. CM will continue to follow and assist as needed with discharge planning / needs. DCP- Discharge Planning Updated by [id number]: Rachael Gonzalez on 11/04/18 10:[address] CM met with patient and sister requesting SNF at [facility]. CM contacted [facility] and faxed over records. CM also placed order for OT eval since patient is managed medicare. CM awaiting response from [facility]. CM will continue to follow and assist as needed with discharge planning / needs. DCP- Discharge Planning Updated by [id number]: Bina Avina on 11/02/18 10:[address] Patient Name: MYLA CARRERA Admission Status: Urgent Accout number: [id number] Admission Date: 11-01-2018 : 1965 Admission Diagnosis:ABSCESS OF VULVA Attending: Jm Wright Current LOS: 1 Anticipated DC Date: Planned Disposition: Penitentiary Facility Primary Insurance: [facility] MEDICARE SOLUTIONS Discharge Planning Comments: LATE ENTRY 0900 CM MET WITH THE PATIENT AND HER SISTER AT THE BEDSIDE. THE PRIMARY NURSE HAD ADVISED THE CM THAT THE SISTER WAS ANXIOUS AND CONCERNED ABOUT DISCHARGE NEEDS. THE SISTER IS WORRIED AND VOICING CONCERNS REGARDING WOUND CARE AND ACKERMAN CARE AT DISCHARGE. THE SISTER WORKS ROBOTICS APPLICATION ENGINEER UNTIL 1600 INTHE EARLY EVENING. HE PATIENT HAS SPINA BIFIDA AND WILL NEED ASISTANCE W/ SITZ BATH, WOUND CARE AND ACKERMAN CARE. THE NURSE CALLED DR TIWARI. ORDER OBTAINED FOR PRIMARY CARE CONSULT. DISCHARGE CANCELLED. PATIENT AND SISTER CONSIDERING SKILLED CARE SHORT STAY. DISCUSS HOME HEALTH AND SKILLED CARE OPTIONS. EXPLAINED THAT THE PATIENT WILL NEED TO CONSIDER MANAGED MEDICARE IN-NETWORK PROVIDERS FOR BETTER INSURANCE COVERAGE. PROVIDED LIST OF SKILLED FACILITIES 1050- DR CABA VISITED FOR CONSULT. Infection Prevention Practitioner: Bina Avina DCPIA - Discharge Planning Initial Assessment Updated by [email or web address]: Bina Avina on 11/02/18 11:07 am * Is the patient Alert and Oriented? Yes * How many steps to enter\exit or inside your home? RAMP * PCP DR ROMERO * Pharmacy [facility] * Preadmission Environment Home with Family * ADLs Partial Dependent * Partial ADLs (Assistance needed) Bathing Transfers * Equipment Cane Walker Wheelchair * Other Equipment ROLLATOR * List name and contact numbers for known caregivers / representatives who currently or will assist patient after discharge: TRUDY CONNOR - SISTER- [phone] * Verbal permission to speak to the caregivers and representatives has been obtained from the patient. Yes * Community resources currently utilized None * Please name any agencies selected above. N/A * Additional services required to return to the preadmission environment? Yes * Can the patient safely return to the preadmission environment? Yes * Has this patient been hospitalized within the prior 30 days at any hospital? No Last DP export: 11/05/18 12:42 p Patient Name: MYLA CARRERA Page 94069 at 1407 All edits/amendments must be made on the electronic document DICTATION DATE: 11/05/181406 WOOD HEEL FITTER MACHINE: JUANI 11/05/181406 RPT#: [id number] DC DATE: STATUS: ADM IN [facility] [address] [place] [address] END OF REPORT
--- NOTE | 2018-11-05 14:23 | MORECARE ---
CASE MANAGEMENT DISCHARGE SUMMARY PATIENT: MYLA CARRERA UNIT: [id number] ADM DATE: 11/01/18 AGE: 53 : 61 SEX: F ROOM/BED: D.1203 AUTHOR: SHUKRI,DOC PHYSICIAN: REFERRING PHYSICIAN: JM WRIGHT MD DATE OF SERVICE: 11/05/18 Discharge Plan Patient Name: MYLA CARRERA Facility: [facility]:[place] : 1965 Planned Disposition: Residential Facility Anticipated Discharge Date: Discharge Date: Expected LOS: Initial Reviewer: [email or web address] Initial Review Date: 11/02/2018 Generated: 11/05/18 3:23 pm Comments DCP- Discharge Planning Updated by [email or web address]: Sherly Bedolla on 11/05/18 1:[address] Met with patient and spoke to her sister on the phone regarding being [facility] Informed them both that [facility] and [facility] both say they are in network. The patient and her sister both agree for referral to be sent to both facilities. MAURILIO signed by the patient for both facilities. CM spoke to Juany with [facility] re: referral and left message for Isaac who was in a care plan meeting at [facility]. CM will await admission determination. Patient will require prior authorization which is highly doubtful it will be today. Sherly Bedolla RN, [facility] DCP- Discharge Planning Updated by [email or web address]: Rachael Gonzalez on 11/05/18 12:[address] LATE ENTRY - 11/05/18 @ 0900 CM received call from Olga Ambrose liaison for [facility]) that they could not accept patient due the insurance policy that she has. CM will continue to follow and assist as needed with discharge planning / needs. DCP- Discharge Planning Updated by [id number]: Sherly Bedolla on 11/05/18 7:[address] Referral pending @ [facility] - CM called to follow up on this referral @ 0815, spoke to Radha Wort Extractor who reported patient has been accepted by them but PA is pending insurance authorization. She stated they faxed for the PA this morning. DCP- Discharge Planning Updated by [email or web address]: Rachael Gonzalez on 11/04/18 4:[address] CM received notice @ 6629 that patient isn't in network at [facility]. CM notified patient and sister Suzie about this. Suzie requested that CM call to find out which facilities are within network. CM called [facility] and was on phone for over 30mins and was given [facility] and [facility]. CM called Suzie back and informed her of this. Suzie gave verbal consent for [facility]. CM faxed records to [facility] awaiting acceptance. CM will continue to follow and assist as needed with discharge planning / needs. DCP- Discharge Planning Updated by [id number]: Rachael Lisa on 11/04/18 10:[address] CM met with patient and sister requesting SNF at [facility]. CM contacted [facility] and faxed over records. CM also placed order for OT eval since patient is managed medicare. CM awaiting response from [facility]. CM will continue to follow and assist as needed with discharge planning / needs. DCP- Discharge Planning Updated by [id number]: Bina Avina on 11/02/18 10:[address] Patient Name: MYLA CARRERA Admission Status: Urgent Accout number: [id number] Admission Date: 11-01-2018 : 1965 Admission Diagnosis:ABSCESS OF VULVA Attending: Jm Wright Current LOS: 1 Anticipated DC Date: Planned Disposition: Residential Facility Primary Insurance: [facility] MEDICARE SOLUTIONS Discharge Planning Comments: LATE ENTRY 0900 CM MET WITH THE PATIENT AND HER SISTER AT THE BEDSIDE. THE PRIMARY NURSE HAD ADVISED THE CM THAT THE SISTER WAS ANXIOUS AND CONCERNED ABOUT DISCHARGE NEEDS. THE SISTER IS WORRIED AND VOICING CONCERNS REGARDING WOUND CARE AND ACKERMAN CARE AT DISCHARGE. THE SISTER WORKS SLAB TRIPPER UNTIL 1600 INTHE EARLY EVENING. HE PATIENT HAS SPINA BIFIDA AND WILL NEED ASISTANCE W/ SITZ BATH, WOUND CARE AND ACKERMAN CARE. THE NURSE CALLED DR TIWARI. ORDER OBTAINED FOR PRIMARY CARE CONSULT. DISCHARGE CANCELLED. PATIENT AND SISTER CONSIDERING SKILLED CARE SHORT STAY. DISCUSS HOME HEALTH AND SKILLED CARE OPTIONS. EXPLAINED THAT THE PATIENT WILL NEED TO CONSIDER MANAGED MEDICARE IN-NETWORK PROVIDERS FOR BETTER INSURANCE COVERAGE. PROVIDED LIST OF SKILLED FACILITIES 1050- DR CABA VISITED FOR CONSULT. Encyclopedia Research Worker: Bina Avina DCPIA - Discharge Planning Initial Assessment Updated by [email or web address]: Bina Avina on 11/02/18 11:07 am * Is the patient Alert and Oriented? Yes * How many steps to enter\exit or inside your home? RAMP * PCP DR ROMERO * Pharmacy [facility] * Preadmission Environment Home with Family * ADLs Partial Dependent * Partial ADLs (Assistance needed) Bathing Transfers * Equipment Cane Walker Wheelchair * Other Equipment ROLLATOR * List name and contact numbers for known caregivers / representatives who currently or will assist patient after discharge: TRUDY CONNOR - [facility]- [phone] * Verbal permission to speak to the caregivers and representatives has been obtained from the patient. Yes * Community resources currently utilized None * Please name any agencies selected above. N/A * Additional services required to return to the preadmission environment? Yes * Can the patient safely return to the preadmission environment? Yes * Has this patient been hospitalized within the prior 30 days at any hospital? No Last DP export: 11/05/18 1:07 p Patient Name: MYLA CARRERA Page [id number] at 1423 All edits/amendments must be made on the electronic document DICTATION DATE: 11/05/181422 HALL CLEANER: JUANI 11/05/181422 RPT#: [id number] DC DATE: STATUS: ADM IN [facility] [address] [place] [address] END OF REPORT
--- NOTE | 2018-11-05 15:20 | NUR ---
OT NOTE: PT IS EASILY FATIGUED WITH ACTIVITY. PT COMPLETED ADL MOB WITH [facility]BA. PT COMPLETED HYGIENE TASK WITH SBA. THANK YOU, ELLA FLOWERS
--- NOTE | 2018-11-05 16:00 | NUR ---
ATTEMPTED TO CALL REPORT TO [facility]. NO ANSWER.
--- NOTE | 2018-11-05 16:08 | MORECARE ---
CASE MANAGEMENT DISCHARGE SUMMARY PATIENT: MYLA CARRERA UNIT: [id number] ADM DATE: 11/01/18 AGE: 53 : 61 SEX: F ROOM/BED: D.1203 AUTHOR: MACHO WATT PHYSICIAN: REFERRING PHYSICIAN: JM WRIGHT MD DATE OF SERVICE: 11/05/18 Discharge Plan Patient Name: MYLA CARRERA Facility: [facility]:[place] : 1965 Planned Disposition: [facility] Facility Anticipated Discharge Date: Discharge Date: Expected LOS: Initial Reviewer: [id number] Initial Review Date: 11/02/2018 Generated: 11/05/18 5:08 pm DCP- Discharge Planning Updated by [email or web address]: Sherly Bedolla on 11/05/18 3:[address] [facility]. Patient has been accepted to [facility] and Isaac called stating they received auth. They will transport the patient today at 1630. [place] design coordinator notified and patient's nurse Radha has also been notified. Sherly Bedolla RN, [facility] DCP- Discharge Planning Updated by [id number]: Sherly Bedolla on 11/05/18 1:[address] Met with patient and spoke to her sister on the phone regarding being [facility] Informed them both that [facility] and [facility] both say they are in network. The patient and her sister both agree for referral to be sent to both facilities. MAURILIO signed by the patient for both facilities. CM spoke to Juany with [facility] re: referral and left message for Isaac who was in a care plan meeting at [facility]. CM will await admission determination. Patient will require prior authorization which is highly doubtful it will be today. Sherly Bedolla RN, [facility] DCP- Discharge Planning Updated by [id number]: Rachael Gonzalez on 11/05/18 12:[address] LATE ENTRY - 11/05/18 @ 0900 CM received call from Olga Ambrose [facility] for [facility] ([facility]) that they could not accept patient due the insurance policy that she has. CM will continue to follow and assist as needed with discharge planning / needs. DCP- Discharge Planning Updated by [email or web address]: Sherly Graeme on 11/05/18 7:[address] Referral pending @ [facility] - CM called to follow up on this referral @ 0809, spoke to Radha [employer] Crew Boss who reported patient has been accepted by them but PA is pending insurance authorization. She stated they faxed for the PA this morning. DCP- Discharge Planning Updated by [email or web address]: Rachael Gonzalez on 11/04/18 4:[address] CM received notice @ 6401 that patient isn't in network at [facility]. CM notified patient and sister Suzie about this. Suzie requested that CM call to find out which facilities are within network. CM called [facility] and was on phone for over 30mins and was given [facility]. CM called Suzie back and informed her of this. Suzie gave verbal consent for [facility]. CM faxed records to [facility] awaiting acceptance. CM will continue to follow and assist as needed with discharge planning / needs. DCP- Discharge Planning Updated by [email or web address]: Rachael Gonzalez on 11/04/18 10:[address] CM met with patient and sister requesting SNF at [facility]. CM contacted [facility] and faxed over records. CM also placed order for OT eval since patient is managed medicare. CM awaiting response from [facility]. CM will continue to follow and assist as needed with discharge planning / needs. DCP- Discharge Planning Updated by [id number]: Bina Avina on 11/02/18 10:[address] Patient Name: MYLA CARRERA Admission Status: Urgent Accout number: [id number] Admission Date: 11-01-2018 : 1965 Admission Diagnosis:ABSCESS OF VULVA Attending: Jm Wright Current LOS: 1 Anticipated DC Date: Planned Disposition: [facility] Facility Primary Insurance: [facility] MEDICARE SOLUTIONS Discharge Planning Comments: LATE ENTRY 0900 CM MET WITH THE PATIENT AND HER SISTER AT THE BEDSIDE. THE PRIMARY NURSE HAD ADVISED THE CM THAT THE SISTER WAS ANXIOUS AND CONCERNED ABOUT DISCHARGE NEEDS. THE SISTER IS WORRIED AND VOICING CONCERNS REGARDING WOUND CARE AND ACKERMAN CARE AT DISCHARGE. THE SISTER WORKS TELEVISION PRODUCER UNTIL 1600 INTHE EARLY EVENING. HE PATIENT HAS SPINA BIFIDA AND WILL NEED ASISTANCE W/ SITZ BATH, WOUND CARE AND ACKERMAN CARE. THE NURSE CALLED DR TIWARI. ORDER OBTAINED FOR PRIMARY CARE CONSULT. DISCHARGE CANCELLED. PATIENT AND SISTER CONSIDERING SKILLED CARE SHORT STAY. DISCUSS HOME HEALTH AND SKILLED CARE OPTIONS. EXPLAINED THAT THE PATIENT WILL NEED TO CONSIDER MANAGED MEDICARE IN-NETWORK PROVIDERS FOR BETTER INSURANCE COVERAGE. PROVIDED LIST OF SKILLED FACILITIES 1050- DR CBAA VISITED FOR CONSULT. Class A Regional Truck Driver: Bina Avina DCPIA - Discharge Planning Initial Assessment Updated by [id number]: Bina Avina on 11/02/18 11:07 am * Is the patient Alert and Oriented? Yes * How many steps to enter\exit or inside your home? RAMP * PCP DR ROMERO * [facility] * Preadmission Environment Home with Family * ADLs Partial Dependent * Partial ADLs (Assistance needed) Bathing Transfers * Equipment Cane Walker Wheelchair * Other Equipment ROLLATOR * List name and contact numbers for known caregivers / representatives who currently or will assist patient after discharge: TRUDY CONNOR - - [phone] * Verbal permission to speak to the caregivers and representatives has been obtained from the patient. Yes * Community resources currently utilized None * Please name any agencies selected above. N/A * Additional services required to return to the preadmission environment? Yes * Can the patient safely return to the preadmission environment? Yes * Has this patient been hospitalized within the prior 30 days at any hospital? No Last DP export: 11/05/18 1:23 p Patient Name: MYLA CARRERA Page 14099 at 1608 All edits/amendments must be made on the electronic document DICTATION DATE: 11/05/181607 MAINTENANCE INSTRUCTOR: JUANI 11/05/181607 RPT#: [id number] DC DATE: STATUS: ADM IN [facility] [address] [place] [address] END OF REPORT
[2018-11-05] MEDS ORDERED: MEPERIDINE HCL50 MG PO (16:37)
[2018-11-05] MEDS ORDERED: CIPRO500 MG PO (16:38)
[2018-11-05] MEDS ORDERED: IBUPROFEN800 MG PO (16:38)
--- NOTE | 2018-11-05 16:49 | NUR ---
PT D/C VIA WHEELCHAIR. ACKERMAN EMPTIED, CLEAR, YELLOW URINE 650MLS. D/C PACKET AND ALL BELONGING SENT WITH PT. ATTEMPTING TO CALL [facility] FOR REPORT FOR THE SECOND TIME.
--- NOTE | 2018-11-06 09:53 | MORECARE ---
CASE MANAGEMENT DISCHARGE SUMMARY PATIENT: MYLA CARRERA UNIT: [id number] ADM DATE: 11/01/18 AGE: 53 : 61 SEX: F ROOM/BED: D.1203 AUTHOR: MACHO WATT PHYSICIAN: REFERRING PHYSICIAN: JM WRIGHT MD DATE OF SERVICE: 11/06/18 Discharge Plan Patient Name: MYLA CARRERA Facility: [facility]:[place] : 1965 Planned Disposition: Residential Facility Anticipated Discharge Date: Discharge Date: 11/05/2018 Expected LOS: Initial Reviewer: [email or web address] Initial Review Date: 11/02/2018 Generated: 11/06/18 10:52 am DCP- Discharge Planning Updated by [email or web address]: Sherly Bedolla on 11/05/18 3:[address] [facility]. Patient has been accepted to [facility] and Isaac called stating they received auth. They will transport the patient today at 1630. [place] video production coordinator notified and patient's nurse Radha has also been notified. Sherly Bedolla RN, [facility] DCP- Discharge Planning Updated by [email or web address]: Sherly Bedolla on 11/05/18 1:[address] Met with patient and spoke to her sister on the phone regarding being [facility] Informed them both that [facility] and [facility] both say they are in network. The patient and her sister both agree for referral to be sent to both facilities. MAURILIO signed by the patient for both facilities. CM spoke to Juany with [facility] re: referral and left message for Isaac who was in a care plan meeting at [facility]. CM will await admission determination. Patient will require prior authorization which is highly doubtful it will be today. Sherly Bedolla RN, [facility] DCP- Discharge Planning Updated by [id number]: Rachael Gonzalez on 11/05/18 12:[address] LATE ENTRY - 11/05/18 @ 0900 [facility] that they could not accept patient due the insurance policy that she has. CM will continue to follow and assist as needed with discharge planning / needs. DCP- Discharge Planning Updated by [email or web address]: Sherly Graeme on 11/05/18 7:[address] Referral pending @ [facility] - CM called to follow up on this referral @ 0829, spoke to Radha Deli Bakery Clerk who reported patient has been accepted by them but PA is pending insurance authorization. She stated they faxed for the PA this morning. DCP- Discharge Planning Updated by [id number]: Rachael Gonzalez on 11/04/18 4:[address] CM received notice @ 9032 that patient isn't in network at [facility]. CM notified patient and sister Suzie about this. Suzie requested that CM call to find out which facilities are within network. CM called [facility] and was on phone for over 30mins and was given [employer] and [email or web address]. CM called Suzie back and informed her of this. Suzie gave verbal consent for [facility]. CM faxed records to [facility] awaiting acceptance. CM will continue to follow and assist as needed with discharge planning / needs. DCP- Discharge Planning Updated by [email or web address]: Rachael Gonzalez on 11/04/18 10:[address] CM met with patient and sister requesting SNF at [facility]. CM contacted [facility] and faxed over records. CM also placed order for OT eval since patient is managed medicare. CM awaiting response from [facility]. CM will continue to follow and assist as needed with discharge planning / needs. DCP- Discharge Planning Updated by [id number]: Bina Avina on 11/02/18 10:[address] Patient Name: MYLA CARRERA Admission Status: Urgent Accout number: [id number] Admission Date: 11-01-2018 : 1965 Admission Diagnosis:ABSCESS OF VULVA Attending: Jm Wright Current LOS: 1 Anticipated DC Date: Planned Disposition: Residential Facility Primary Insurance: [facility] MEDICARE SOLUTIONS Discharge Planning Comments: LATE ENTRY 0900 CM MET WITH THE PATIENT AND HER SISTER AT THE BEDSIDE. THE PRIMARY NURSE HAD ADVISED THE CM THAT THE SISTER WAS ANXIOUS AND CONCERNED ABOUT DISCHARGE NEEDS. THE SISTER IS WORRIED AND VOICING CONCERNS REGARDING WOUND CARE AND ACKERMAN CARE AT DISCHARGE. THE SISTER WORKS ROUND CUTTER OPERATOR UNTIL 1600 INTHE EARLY EVENING. HE PATIENT HAS SPINA BIFIDA AND WILL NEED ASISTANCE W/ SITZ BATH, WOUND CARE AND ACKERMAN CARE. THE NURSE CALLED DR TIWARI. ORDER OBTAINED FOR PRIMARY CARE CONSULT. DISCHARGE CANCELLED. PATIENT AND SISTER CONSIDERING SKILLED CARE SHORT STAY. DISCUSS HOME HEALTH AND SKILLED CARE OPTIONS. EXPLAINED THAT THE PATIENT WILL NEED TO CONSIDER MANAGED MEDICARE IN-NETWORK PROVIDERS FOR BETTER INSURANCE COVERAGE. PROVIDED LIST OF SKILLED FACILITIES 1050- DR CABA VISITED FOR CONSULT. Catering Chef: Bina Avina DCPIA - Discharge Planning Initial Assessment Updated by [email or web address]: Bina Avina on 11/02/18 11:07 am * Is the patient Alert and Oriented? Yes * How many steps to enter\exit or inside your home? RAMP * PCP DR ROMERO * Pharmacy [facility] * Preadmission Environment Home with Family * ADLs Partial Dependent * Partial ADLs (Assistance needed) Bathing Transfers * Equipment Cane Walker Wheelchair * Other Equipment ROLLATOR * List name and contact numbers for known caregivers / representatives who currently or will assist patient after discharge: TRUDY CONNOR - - [phone] * Verbal permission to speak to the caregivers and representatives has been obtained from the patient. Yes * Community resources currently utilized None * Please name any agencies selected above. N/A * Additional services required to return to the preadmission environment? Yes * Can the patient safely return to the preadmission environment? Yes * Has this patient been hospitalized within the prior 30 days at any hospital? No Last DP export: 11/05/18 3:08 p Patient Name: MYLA CARRERA Page 26738 at 0953 All edits/amendments must be made on the electronic document DICTATION DATE: 11/06/18951 MANAGER CLINICAL SERVICES: JUANI 11/06/18951 RPT#: [id number] DC DATE:11/05/18 STATUS: DIS IN [facility] [address] [place] [address] END OF REPORT
== END 2018-11-05 17:56 | disposition home or self-care (01) ==
LOC: UNDOADMIN 11:28 → D.M3 11:28 → OBSVTIME 11:31 → EDSTATUS 14:00 → D.M3 11-05 17:56
PROVIDERS: ADMIT Obstetrics & Gynecology; ATTEND Obstetrics & Gynecology
PROC: 0UBM0ZZ Excision of Vulva, Open Approach (ICD-10-PCS; principal; 2018-11-01 14:00)
DX: N76.4 Abscess of vulva (principal); Q05.9 Spina bifida, unspecified; N31.9 Neuromuscular dysfunction of bladder, unspecified; I10 Essential (primary) hypertension; E78.5 Hyperlipidemia, unspecified; N90.7 Vulvar cyst

== ENCOUNTER 2019-09-22 08:00 | Outpatient (CLI) | payer MEDICARE, MEDICAID ==
[2018-11-05 12:25] VITALS: BMI 25.6
[~2019-09-22 08:00] MED LIST: ASCORBIC ACID500 MG PO; CIPRO500 MG PO; CITRACAL + D E1 EACH PO; FIBER-TABS625 MG PO; FLORANEX / LACT1 TAB PO; FOLIC ACID0.8 MG PO; IBUPROFEN800 MG PO; MEPERIDINE HCL50 MG PO; MULTI-DAY VITAM1 TAB PO; NEURONTIN 300300 MG PO; NIFEREX-150 CAP1 CA3 PO; OMEPRAZOLE40 MG PO; TRICOR145 MG PO; VESICARE5 MG PO; VITAMIN B-121000 MCG PO; ZESTRIL10 MG PO
== END 2019-09-22 10:00 | disposition home or self-care (01) ==
LOC: D.MAMMO 08:00
PROVIDERS: ATTEND Family Medicine
DX: Z12.31 Encounter for screening mammogram for malignant neoplasm of breast (principal)